=== PATIENT | female | born 2000 | race Caucasian/White ===

== ENCOUNTER 2025-09-11 15:17 | Outpatient (REF) | payer BC, SELFPAY ==
--- NOTE | ~2025-09-11 | XR_ITS ---
EXAMINATION: XR SKULL CLINICAL INFORMATION: D16.4 - Benign neoplasm of bones of skull and face; right temporal bony growth. COMPARISON: None available. TECHNIQUE: AP and lateral views of the skull were obtained. FINDINGS: In the region of interest in the right temporal calvarium, there is a small bony exostosis arising from the coronal suture, benign abnormality. This is presumably the palpable focus of concern. No additional bone lesion is identified. The calvarium otherwise appears normal. The sella is normal in size. The orbits are intact. There is mild left nasal septal deviation. The paranasal sinuses are grossly well pneumatized without air-fluid levels or gross opacities. The mastoids are grossly aerated. No soft tissue abnormality. XR/XR skull <4V IMPRESSION: 1. Small bony exostosis arising from the right coronal suture, presumably representing the palpable abnormality. This is benign. 2. Examination is otherwise normal. Electronically signed by: Stanislaw Pierre MD 09/11/2025 04:10 PM [facility]
== END 2025-09-11 15:18 | disposition home or self-care (01) ==
LOC: HO.XRAY 15:17
PROVIDERS: PCP Pediatrics; Visit Provider Psychiatry & Neurology Neurology
DX: G40.B09 Juvenile myoclonic epilepsy, not intractable, without status epilepticus (principal); F32.A Depression, unspecified; D16.4 Benign neoplasm of bones of skull and face; Z79.899 Other long term (current) drug therapy
CPT/HCPCS: 70250

== ENCOUNTER 2025-09-11 15:17 | Outpatient (AMB) | payer BC, SELFPAY ==
--- NOTE | 2025-09-11 15:19 | MHC.OFFVIS ---
Intake Visit Reasons: 1 year follow up Allergies No Known Allergies Allergy (Verified 09/06/25 10:15) Medication List - Last Reconciled 09/11/25 by Sil Baldwin MD levetiracetam 250 mg orally 1 tablet in the morning and 2 tablets at bedtime; 90 days vit no.[id number] 28 mg iron- 800 mcg (Classic ) tabs PO HPI Comments Details: 25 yr woman with h/o Sz disorder. No Sz recurrence. No side effects. Mood swings are better and thoughts are clearer. Appetite is slightly better. No change in weight. Last Sz on Sep 26 2020 while sleep deprived and was having some morning twitches and jumpiness and then proceeded to a gen Sz. She is amnesic till the ambulance ride. No recurrence since then. She has had momentary spells of going blank, lasting a fraction of a second in 2016. They occur exclusively within the first 15 min. of awakening in the morning. Nobody else is aware of them. She does not lose track of time. No more jolts. Most often they're single episodes, although at times she has had multiple episodes. They are more frequent if she is super-tired or stressed. She's never had any febrile convulsions, syncope, fainting, or staring spells. There is no history of trauma or developmental delays. [facility] Medical History (Updated 09/11/25 @ 15:25 by Sil Baldwin MD) Depression CHEN (juvenile myoclonic epilepsy) Seizure disorder Review of Systems Const Details: Sleep:? Difficulty getting to sleep?denies.? Difficulty maintaining sleep?denies?.? Urge to move legs?denies.? Teeth grinding?denies.? Shouting or Kicking during sleep?denies.? Abnormal behavior during sleep?denies.? Excessive sleep?denies.? Snoring?denies.? Daytime sleepiness?denies.? ?? General/Constitutional:? Change in appetite?denies.? Chills?denies.? Fatigue?denies.? Fever?denies.? Weight gain?denies.? Weight loss?admits.? ?? Ophthalmologic:? Blurred vision?denies.? Diminished visual acuity?denies.? ?? ENT:? Stuffiness?denies.? Decreased hearing?denies.? Dry mouth?denies.? Ear pain?denies.? Nosebleed?denies.? Ringing in the ears?denies.? Sinus pain?denies.? Sore throat?denies.? Swollen glands?denies.? ?? Endocrine:? Cold intolerance?denies.? Excessive thirst?denies.? Frequent urination?denies.? Heat intolerance?denies.? ?? Respiratory:? Shortness of breath?denies.? Chest pain?denies.? Cough?denies.? ?? Breast:? Breast lump?denies.? Nipple discharge?denies.? ?? Cardiovascular:? Chest pain at rest?denies.? Chest pain with exertion?denies.? Claudication?denies.? Dizziness?denies.? Fluid accumulation in the legs?denies.? Irregular heartbeat?denies.? Palpitations?denies.? ?? Gastrointestinal:? Abdominal pain?denies.? Constipation?denies.? Diarrhea?denies.? Difficulty swallowing?denies.? Heartburn?denies.? Nausea?denies.? Rectal bleeding?denies.? ?? Hematology:? Easy bruising?denies.? Prolonged bleeding?denies.? ?? Genitourinary:? Frequent urination?denies.? Urgency?denies.? Incontinence?denies.? Erectile Dysfunction?denies.? ?? Musculoskeletal:? Neck pain?denies.? Back pain?denies.? Muscle aches?denies.? Painful joints?denies.? Sciatica?denies.? Weakness?denies.? ?? Podiatric:? Difficulty walking?denies.? Foot numbness?denies.? ?? Neurologic:? Difficulty swallowing?denies.? Balance difficulty?denies.? Coordination?normal.? Difficulty speaking?denies.? Dizziness?denies.? Fainting?denies.? Gait abnormality?denies.? Headache?denies.? Loss of strength?denies.? Loss of use of extremity?denies.? Low back pain?denies.? Memory loss?denies.? Seizures?admits.? Tics?denies.? Tingling/Numbness?denies.? Transient loss of vision?denies.? Tremor?denies.? ?? Psychiatric:? Anxiety?denies.? Auditory/visual hallucinations?denies.? Delusions?denies.? Depressed mood?denies.? Stressors?denies.? Substance abuse?denies.? Suicidal thoughts?denies.?? Physical Exam Neuro Other: Mini Mental Status Exam: ? Level of Consciousness:?Alert.? Orientation:?Knows correct year, month, date, day and season,?Knows correct city, county and state. Knows correct location and floor.? Registration:?Able to register 3 objects.? Attention:?Serial 7's performed accurately.? Recall:?Able to recall 3 out of 3 objects.? Language:?Normal spontaneous speech, fluency, repetition,naming, comprehension, reading and writing.? Total Score:?30/30.? General Examination: ? GENERAL APPEARANCE:?normal,?in no acute distress.? HEAD:?normocephalic,?atraumatic.? EYES:?sclera non-icteric,?conjunctiva clear.? EARS:?auditory canal clear,?tympanic membrane intact, clear.? NOSE:?no lesions.? ORAL CAVITY:?gums normal,?mucosa moist,?no lesions.? THROAT:?clear.? NECK/THYROID:?no cervical lymphadenopathy,?thyroid normal,?neck supple, full range of motion,?no carotid bruit.? SKIN:?no rashes,?no significant birthmarks.? HEART:?S1, S2 normal,?no murmurs.? LUNGS:?clear anteriorly and posteriorly.? CHEST:?no gross rib deformity,?clear to auscultation.? BACK:?normal exam of spine.? EXTREMITIES:?no edema.? PERIPHERAL PULSES:?normal.? PSYCH:?alert, oriented,?cognitive function intact,?cooperative with exam.? Neurological: ? Abnormal neurological findings:??none.? Mental Status:?alert and oriented X 3,?Normal attention, orientation, memory and affect.? Cranial Nerves:?Pupils are equal, round and reactive to light. Fundoscopy shows normal disc bilaterally. External occular muscles are intact. Visual knox are full, no ptosis. Face is symmetrical, no facial weakness or droop. Facial sensations are normal. Tongue protrudes in midline. Palate elevates symmetrically. Shoulder shrugging is normal..? Motor Examination:?Normal muscle tone, bulk and strength,?No atrophy or fasciculations,?No drift of the extended upper extremities,?Deep tendon reflexes are 2+?,?Plantars are flexor?.? Straight Leg Raising:?90 degrees.? Sensory Exam:?Normal light touch, temperature, pinprick, vibration and joint-position sensations?,?Rhomberg sign is absent.? Coordination:?no ataxia,?no titubation,?[id number], ofsi-ymkr-bynd test and rapid alternating movements were normal.? Gait Exam:?Within normal limits.? Cerebellar Signs:?Drxiij-sn-nile and odil-wu-xkbz is normal,?no dysdiadochokinesia?.? Extrapyramidal System:?No tremor, rigidity with normal facial expressions,?No bradykinesia, no bradyphrenia. Normal arm swing and posture. No propulsion or retropulsion.? Speech:?Normal,?no dysphasia or dysarthria..? 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 Continue Keppra 750mg / day as directed. Orders: Orders XR skull <4V Today D16.4 - Benign neoplasm of bones of skull and face Medications: Refilled levetiracetam 250 mg orally 1 tablet in the morning and 2 tablets at bedtime; 270 tabs 3RF 90 days Coding Level of Care Code Est Pt Level 4 (16005) Diagnoses Seizure disorder G40.909 CHEN (juvenile myoclonic epilepsy) G40.B09 Depression F32.A Osteoma of skull D16.4
== END 2025-09-11 15:35 | disposition home or self-care (01) ==
PROVIDERS: PCP Pediatrics; Visit Provider Psychiatry & Neurology Neurology
DX: G40.909 Epilepsy, unspecified, not intractable, without status epilepticus (principal); G40.B09 Juvenile myoclonic epilepsy, not intractable, without status epilepticus; F32.A Depression, unspecified; D16.4 Benign neoplasm of bones of skull and face
CPT/HCPCS: 99214

== ENCOUNTER → 2025-09-11 15:43 | Outpatient (BNV) | payer BC, SELFPAY | PROVIDERS: PCP Pediatrics; Visit Provider Radiology Diagnostic Radiology | DX: D16.4 Benign neoplasm of bones of skull and face (principal) | CPT/HCPCS: 70250 ==